=== PATIENT | female | born 1980 | race Caucasian/White ===

== ENCOUNTER 2023-12-31 07:10 | Inpatient (IN) | payer OTHER ==
[2023-12-31] MEDS: ELECTROLYTE-148 SOLN 1,000 ML IV SCH (07:30)
[2023-12-31 08:56] VITALS: BMI 29.7
[2023-12-31] MEDS: OXYTOCIN 30 UNITS in 0.9% NS 30 UNIT/500 ML INFUS.BAG IVPB SCH (09:12)
[2023-12-31] MEDS ORDERED: OXYTOCIN 30 UNITS in 0.9% NS 30 UNIT/500 ML INFUS.BAG IVPB ONE (09:14)
[2023-12-31 09:47] LABS: BASO % 0.8 % (0-2.0); EOS % 1.4 % (0-4.5); HEMATOCRIT 32.1 % (32.4-45.2); HEMOGLOBIN 10.5 GM/dL (10.7-15.3); LYMPH % 16.8 % (8-40); MCHC 32.6 g/dl (32.0-36.0); MEAN CELL VOLUME 88.9 fl (80-96); MEAN PLT VOLUME 10.9 fl (7.5-11.1); MONO % 9.4 % (3.8-10.2); NEUT % 71.6 % (42.8-82.8); PLATELET COUNT 175 10^3/uL (134-434); RBC 3.62 M/mm3 (3.60-5.2); RDW 15.3 % (11.6-15.6); WHITE BLOOD COUNT 9.7 K/mm3 (4.0-10.0)
[2023-12-31 09:50] LABS: INR 0.92 (0.83-1.09); PROTHROMBIN TIME (PATIENT) 10.6 SEC (9.7-13.0)
[2023-12-31 09:53] LABS: ACTIVATED PTT 26.3 SECONDS (25.2-36.5)
[2023-12-31 10:11] LABS: POTASSIUM 4.5 mmol/L (3.5-5.1)
[2023-12-31 10:13] LABS: CALCIUM 8.8 mg/dL (8.5-10.1)
[2023-12-31 10:14] LABS: BLOOD UREA NITROGEN 9.6 mg/dL (7-18)
[2023-12-31 10:17] LABS: CREATININE 0.5 mg/dL (0.55-1.3)
[2023-12-31 12:22] LABS: HIV INTERPRETATION NEGATIVE (NEGATIVE)
[2023-12-31] MEDS ORDERED: NALOXONE HCL 0.4 MG/ML VIAL IVPUSH PRN (13:54)
[2023-12-31] MEDS ORDERED: FENTANYL CITRATE/PF 50 MCG/ML VIAL ONE (13:55)
[2023-12-31] MEDS ORDERED: DEXTROSE 5%-LACTATED RINGERS 1,000 ML IV SCH (14:00)
[2023-12-31] MEDS: FENTANYL/BUPIVACAINE/NS/PF - PCEA - 50 ML DISP.SYRIN EP SCH (14:15)
[2023-12-31] MEDS ORDERED: FENTANYL/BUPIVACAINE/NS/PF - PCEA - 50 ML DISP.SYRIN EP ONE (14:18)
[2023-12-31] MEDS ORDERED: OXYTOCIN 20 UNITS in 0.9% NS 20 UNIT/1,000 ML INFUS.BAG IV ONE (16:28)
[2023-12-31] MEDS ORDERED: BISACODYL 10 MG SUPP.RECT RC PRN (17:53)
[2023-12-31] MEDS ORDERED: oxyCODONE HCL 5 MG TABLET PO PRN (17:53)
[2023-12-31] MEDS ORDERED: BENZOCAINE 20% 57 GM BOTTLE TP PRN (17:53)
[2023-12-31] MEDS ORDERED: WITCH HAZEL 50% (TUCKS) 40 PAD/JAR PAD TP PRN (17:53)
[2023-12-31] MEDS ORDERED: BENZOCAINE 28 GM HEMORRHOIDAL OINTMENT TP PRN (17:53)
[2023-12-31] MEDS ORDERED: METHYLERGONOVINE MALEATE 0.2 MG/1 ML AMP IM PRN (17:53)
[2023-12-31] MEDS: OXYTOCIN 20 UNITS in 0.9% NS 20 UNIT/1,000 ML INFUS.BAG IV SCH (18:16)
[2023-12-31] MEDS: LABETALOL HCL 200 MG TABLET (FP) PO SCH (21:33)
[2023-12-31] MEDS: IBUPROFEN 600 MG TABLET (FP) PO PRN (21:33)
[2024-01-01] MEDS: ACETAMINOPHEN 325 MG TABLET (FP) PO PRN (03:10)
[2024-01-01] MEDS: FERROUS SO4 325 MG TABLET (FP) PO SCH (08:40)
[2024-01-01 08:45] LABS: BASO % 0.7 % (0-2.0); EOS % 0.5 % (0-4.5); HEMATOCRIT 24.6 % (32.4-45.2); HEMOGLOBIN 8.2 GM/dL (10.7-15.3); LYMPH % 10.4 % (8-40); MCH 29.4 pg (25.7-33.7); MCHC 33.3 g/dl (32.0-36.0); MEAN CELL VOLUME 88.4 fl (80-96); MEAN PLT VOLUME 10.8 fl (7.5-11.1); NEUT % 80.4 % (42.8-82.8); PLATELET COUNT 150 10^3/uL (134-434); RBC 2.79 M/mm3 (3.60-5.2); RDW 15.4 % (11.6-15.6); WHITE BLOOD COUNT 11.3 K/mm3 (4.0-10.0)
[2024-01-01] MEDS: PRENATAL VITAMINS W/ FOLIC ACID TABLET (FP) PO SCH (09:59)
[2024-01-01] MEDS: FLU VACCINE (FLULAVAL) PF 45 MCG/0.5 ML SYRINGE 2024-2025 IM ONE (11:16)
[2024-01-01] MEDS: DIPHTH,PERTUSS(ACELL),TET 0.5 ML DISP.SYRIN IM ONE (11:18)
[2024-01-01] MEDS ORDERED: SENNOSIDES/DOCUSATE COMBO (SENNA PLUS) TABLET (UD) PO PRN (22:00)
[2024-01-02 11:37] VITALS: BP 137/77; PULSE 85; RESP 17; TEMP 97.5
== END 2024-01-02 13:50 | disposition home or self-care (01) | DRG 560 ==
LOC: JLDR 07:10 → J3W 21:21
PROVIDERS: ADMIT Obstetrics & Gynecology; ATTEND Obstetrics & Gynecology
PROC: 10E0XZZ Delivery of Products of Conception, External Approach (ICD-10-PCS; principal; 2023-12-31)
PROC: 0W8NXZZ Division of Female Perineum, External Approach (ICD-10-PCS; 2023-12-31)
DX: O13.4 Gestational [pregnancy-induced] hypertension without significant proteinuria, complicating childbirth (principal); Z3A.39 39 weeks gestation of pregnancy; Z37.0 Single live birth
CPT/HCPCS: 36415; 59409; 80048; 85025; 85610; 85730; 86780; 86803; 86850; 86900; 86901; 87389; 90656; 90715; G0008